=== PATIENT | male | born 1960 | race African-American/Black ===

== ENCOUNTER 2022-01-02 10:23 | Outpatient (CLI) | payer OTHER | END 2022-01-02 10:24 | disposition home or self-care (01) | LOC: MRI 10:23 | PROVIDERS: ATTEND Nurse Practitioner Family | DX: M48.02 Spinal stenosis, cervical region (principal); M47.812 Spondylosis without myelopathy or radiculopathy, cervical region; G95.89 Other specified diseases of spinal cord; Z98.890 Other specified postprocedural states | CPT/HCPCS: 72141 ==

== ENCOUNTER 2023-07-31 12:36 | Emergency (ER) | payer OTHER ==
[2023-07-31] MEDS ORDERED: Ondansetron PF 4 MG/2 ML Vial ONE (13:18)
[2023-07-31] MEDS ORDERED: Morphine 4 MG/ML VIAL ONE ×2 (13:18→15:28)
[2023-07-31 13:36] LABS: #Basophils 0.04 10x3/uL (0.0-0.2); %Basophils 0.4 % (0.0-1.0); %Eosinophils 0.6 % (0.0-10.0); %Lymphocytes 18.6 % (21.0-51.0); %Neutrophils 72.1 % (42.0-75.0); Hematocrit 37.7 % (42.0-52.0); Hemoglobin 12.3 g/dL (14.0-18.0); Mean Corpuscular HGB CONC 32.6 g/dL (32.0-36.0); Mean Corpuscular Hemoglobin 31.1 pg (27.0-31.0); Mean Corpuscular Volume 95.4 fL (78.0-98.0); Mean Platelet Volume 8.9 fL (7.4-10.4); Platelet Count 289 10x3/uL (130-400); RBC Distribution Width 14.3 % (11.5-14.5); Red Blood Cell (RBC) Count 3.95 mill/uL (4.70-6.10)
[2023-07-31 13:51] LABS: CRP,High Sensitivity (Inhouse) 0.13 mg/dL (< or = 0.5)
[2023-07-31 13:52] LABS: ALT (SGPT) 12 U/L (8-55); AST (SGOT) 19 U/L (5-34); Albumin 3.4 g/dL (3.4-4.8); Alkaline Phosphatase 69 U/L (40-110); Anion Gap 13 mmol/L (10-20); BUN (Urea Nitrogen) 7 mg/dL (8.4-25.7); Bilirubin, Total 0.4 mg/dL (0.2-1.2); Calc. Creatinine Clearance 0 mL/min (70-130); Calcium 8.5 mg/dL (7.8-10.44); Carbon Dioxide 22 mmol/L (23-31); Chloride 103 mmol/L (98-107); Estimated GFR 104; Globulin 4.1 g/dL (2.4-3.5); Glucose 96 mg/dL (80-115); Magnesium 1.8 mg/dL (1.6-2.6); Potassium 4.2 mmol/L (3.5-5.1); Protein, Total 7.5 g/dL (5.8-8.1); Sodium 134 mmol/L (136-145)
[2023-07-31] MEDS ORDERED: Heparin 25,000 units/D5W 500 ML ONE (16:05)
[2023-07-31] MEDS ORDERED: Heparin 5,000 UNITS/ML VIAL ONE (16:05)
[2023-07-31 16:15] LABS: Prothrombin Time 13.4 sec (12.0-14.7)
[2023-07-31 16:16] LABS: PTT 29.9 sec (22.9-36.1)
[2023-07-31] MEDS ORDERED: HYDROmorphone 0.5 MG/0.5 ML SYRINGE ONE (17:27)
== END 2023-07-31 18:38 ==
LOC: ERS 12:36
DX: I74.3 Embolism and thrombosis of arteries of the lower extremities (principal); I73.9 Peripheral vascular disease, unspecified
CPT/HCPCS: 36415; 75635; 80053; 83605; 83735; 85025; 85610; 85730; 86141; 87040; 87070; 87077; 87186; 87205; 96361; 96365; 96366; 96375; 96376; J1170; J1644; J2270; J2405

== ENCOUNTER 2024-11-29 08:11 | Observation (INO) | payer OTHER ==
[2024-11-29 08:45] LABS: #Basophils 0.04 10x3/uL (0.0-0.2); #Eosinophils 0.08 10x3/uL (0.0-0.7); #Monocytes 1.03 10x3/uL (0.11-0.59); #Neutrophils 7.45 10x3/uL (1.40-6.50); %Basophils 0.4 % (0.0-1.0); %Eosinophils 0.8 % (0.0-10.0); %Lymphocytes 15.3 % (21.0-51.0); %Monocytes 10.1 % (0.0-10.0); %Neutrophils 73.1 % (42.0-75.0); Hematocrit 35.1 % (42.0-52.0); Hemoglobin 9.7 g/dL (14.0-18.0); Mean Corpuscular Hemoglobin 19.2 pg (27.0-31.0); Mean Corpuscular Volume 69.5 fL (78.0-98.0); Platelet Count 335 10x3/uL (130-400); Red Blood Cell (RBC) Count 5.05 mill/uL (4.70-6.10); White Blood Cell (WBC) Count 10.19 10x3/uL (4.8-10.8)
[2024-11-29 09:03] LABS: INR-International Normal Ratio 1.0; Prothrombin Time 13.7 sec (12.0-14.7)
[2024-11-29 09:04] LABS: PTT 29.6 sec (22.9-36.1)
[2024-11-29] MEDS ORDERED: Lidocaine 1% w/Epinephrine 1:100K 20 ML VIAL ONE (09:43)
[2024-11-29] MEDS ORDERED: Sodium Bicarbonate 2.5 MEQ/5 ML SDV ONE (09:43)
[2024-11-29] MEDS ORDERED: Acetaminophen 325 MG TAB PO PRN (09:45)
[2024-11-29] MEDS ORDERED: Ondansetron PF 4 MG/2 ML Vial IVP PRN (09:45)
[2024-11-29 10:08] LABS: Anisocytosis MODERATE=16-30 cells HPF (0-5); Microcytosis SLIGHT = 6-15 cells HPF (0-5); Platelet Adequacy Comment Platelets Normal; Polychromasia SLIGHT = 2-3 cells HPF (0-2); Schistocytes SLIGHT = 2-5 cells HPF (0-1); Target Cells MODERATE= 6-15 cells HPF (0-1)
[2024-11-29] MEDS ORDERED: Ketorolac Tromethamine 30 MG (1 mL) VIAL ONE (12:31)
[2024-11-29] MEDS: Heparin 5,000 UNITS/ML VIAL SC SCH (15:55)
[2024-11-29 16:19] VITALS: BMI 21.0
[2024-11-29] MEDS: Melatonin 3 MG TAB PO PRN (20:21)
[2024-11-29] MEDS: Cyclobenzaprine 10 MG TAB PO PRN (20:21)
[2024-11-30 08:31] VITALS: BP 133/84; TEMP 99
[2024-11-30] MEDS: BuPROPion XL 150 MG ER.TAB PO SCH (08:41)
== END 2024-11-30 12:59 | disposition home or self-care (01) ==
LOC: CT 08:11 → OBS 13:58
PROVIDERS: ADMIT Student in an Organized Health Care Education/Training Program; ATTEND Student in an Organized Health Care Education/Training Program
PROC: 0BBC3ZX Excision of Right Upper Lung Lobe, Percutaneous Approach, Diagnostic (ICD-10-PCS; principal; 2024-11-29)
DX: C34.11 Malignant neoplasm of upper lobe, right bronchus or lung (principal); I10 Essential (primary) hypertension; E78.5 Hyperlipidemia, unspecified; F17.210 Nicotine dependence, cigarettes, uncomplicated; Z88.6 Allergy status to analgesic agent; Z79.899 Other long term (current) drug therapy
CPT/HCPCS: 32408; 36000; 36415; 71045; 77002; 77012; 85025; 85610; 85730; 88305; 88333; 88334; 88341; 88342; 96372; G0378; J1644; J1885; J2250